=== PATIENT | female | born 1995 | race Caucasian/White ===

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

== ENCOUNTER → 2021-07-03 | Outpatient (REF) | LOC: M PLAIMG 13:45 | PROVIDERS: ATTEND Internal Medicine | DX: Z00.00 Encounter for general adult medical examination without abnormal findings (principal) ==

== ENCOUNTER → 2022-06-11 | Outpatient (REF) | LOC: M PLAIMG 11:54 | PROVIDERS: ATTEND Internal Medicine | DX: Z11.52 Encounter for screening for COVID-19 (principal) ==